=== PATIENT | male | born 1970 | race African-American/Black ===

== ENCOUNTER → 2021-03-13 | Day surgery (SDC) | payer OTHER ==
[2021-03-09 08:01] LABS: BASOPHILS # (AUTO) 0.1 (0.0-0.1); BASOPHILS % 1.4 % (0.0-1.0); EOSINOPHILS # (AUTO) 0.4 (0.0-0.4); HEMATOCRIT 43.4 % (38.2-49.6); HEMOGLOBIN 14.6 g/dL (14.0-18.0); LYMPHOCYTES # (AUTO) 1.9 (1.0-3.2); LYMPHOCYTES % 41.9 % (18.0-39.1); MEAN CORPUSCULAR HEMOGLOBIN 29.5 pg (28-32); MEAN CORPUSCULAR HGB CONC 33.6 g/dL (31-35); MEAN CORPUSCULAR VOLUME 87.7 fL (81-99); MONOCYTES # (AUTO) 0.5 (0.2-0.8); MONOCYTES % 10.9 % (4.4-11.3); NEUTROPHILS # (AUTO) 1.6 (2.1-6.9); NEUTROPHILS % 36.1 % (38.7-80.0); PLATELET COUNT 270 x10e3/uL (140-360); RED BLOOD COUNT 4.95 x10e6/uL (4.3-5.7); RED CELL DISTRIBUTION WIDTH 13.5 % (11.7-14.4)
[2021-03-09 08:16] LABS: ANION GAP 11.4 mmol/L (8-16); CALCIUM 8.3 mg/dL (8.4-10.2); CREATININE, SERUM 0.82 mg/dL (0.72-1.25); POTASSIUM 3.4 mmol/L (3.5-5.1)
[~2021-03-13] MED LIST: ASPIRIN81 MG PO; BENICAR20 MG PO; BYSTOLIC10 MG PO; HYDRALAZINE HCL 20 MG/ML VIAL ONE; HYDROCHLOROTHIA25 MG PO; NIFEDIPINE ER30 M1 PO; SODIUM CHLORIDE 0.9% 50ML 100 ML ONE
[2021-03-13 11:00] VITALS: BP 110/69
== END | disposition home or self-care (01) ==
LOC: OR 05:32
PROVIDERS: ATTEND Orthopaedic Surgery
DX: S43.421A Sprain of right rotator cuff capsule, initial encounter (principal); S43.431A Superior glenoid labrum lesion of right shoulder, initial encounter; M19.011 Primary osteoarthritis, right shoulder; S43.91XA Sprain of unspecified parts of right shoulder girdle, initial encounter; M75.41 Impingement syndrome of right shoulder; M75.51 Bursitis of right shoulder; M24.011 Loose body in right shoulder; S43.422A Sprain of left rotator cuff capsule, initial encounter; M19.012 Primary osteoarthritis, left shoulder; M75.42 Impingement syndrome of left shoulder; G47.33 Obstructive sleep apnea (adult) (pediatric); I10 Essential (primary) hypertension; X58.XXXA Exposure to other specified factors, initial encounter; Z01.810 Encounter for preprocedural cardiovascular examination; Z01.812 Encounter for preprocedural laboratory examination; Z20.822 Contact with and (suspected) exposure to COVID-19; Z79.82 Long term (current) use of aspirin; Z86.16 Personal history of COVID-19
CPT/HCPCS: 29807; 29824; 29826; 29827; 36415; 80048; 85025; 93005; C1713; J0360; J0690; U0002